=== PATIENT | male | born 1975 | race Caucasian/White ===

== ENCOUNTER 2018-02-10 06:42 | Emergency (ER) | payer OTHER, MEDICAID ==
[~2018-02-10] VITALS: Ht 180.3 cm; Wt 72.6 kg
[~2018-02-10 06:42] MED LIST: ACETAMINOPHEN-1 EAC1 PO; BACTRIM DS TAB1 EACH PO; IBUPROFEN 800800 M1 PO; KEFLEX500 MG PO; NORCO 5-325 TA1 EAC1 PO; TRIAMCINOLONE A80 G2 TOP
[2018-02-10] MEDS ORDERED: NORCO 5-325 TA1 EACH PO (08:26)
[2018-02-10] MEDS ORDERED: FLEXERIL PO (08:26)
[2018-02-10 08:36] VITALS: BP 169/78
== END 2018-02-10 08:37 | disposition home or self-care (01) ==
LOC: M.ERS 06:42
DX: S10.83XA Contusion of other specified part of neck, initial encounter (principal); Z77.22 Contact with and (suspected) exposure to environmental tobacco smoke (acute) (chronic); W22.8XXA Striking against or struck by other objects, initial encounter; Y93.89 Activity, other specified; Y92.89 Other specified places as the place of occurrence of the external cause; Y99.8 Other external cause status

== ENCOUNTER 2018-04-06 12:49 | Emergency (ER) | payer OTHER, MEDICAID ==
[~2018-04-06] VITALS: Ht 180.3 cm; Wt 72.6 kg
[~2018-04-06 12:49] MED LIST changes: +FLEXERIL PO; +NORCO 5-325 TA1 EACH PO
[2018-04-06 13:39] LABS: ABSOLUTE BASOPHILS 0.2 thou/uL (0.0-0.2); ABSOLUTE EOSINOPHILS 0.1 thou/uL (0.0-0.7); ABSOLUTE LYMPHOCYTES 1.8 thou/uL (0.8-5.3); ABSOLUTE MONOCYTES 1.3 thou/uL (0.0-1.2); ABSOLUTE NEUTROPHILS 12.2 thou/uL (1.6-8.1); EOSINOPHILS 0.5 %; HEMATOCRIT 41.8 % (42.0-52.0); HEMOGLOBIN 13.8 gm/dL (14.0-18.0); LYMPHOCYTES 11.4 %; MCH 29.1 pg (26.0-34.0); MCHC 33.1 g/dL (28.0-37.0); MCV 87.7 fL (80.0-100.0); MONOCYTES 8.2 %; MPV 7.3 fl. (7.2-11.1); NUCLEATED RBCS 0 /100WBC; PLATELET COUNT* 384 thou/uL (150-400); POLYS 78.9 %; RBC 4.76 mil/uL (4.50-6.00); RDW-CV 13.7 % (10.5-14.5); WBC 15.4 thou/uL (4.0-11.0)
[2018-04-06 13:40] LABS: INFLUENZA A ANTIGEN None Detected (None Detect); INFLUENZA B ANTIGEN None Detected (None Detect)
[2018-04-06] MEDS ORDERED: PREDNISONE 20 M20 M1 PO (13:42)
[2018-04-06] MEDS ORDERED: PROAIR HFA8.5 GM INH (13:42)
[2018-04-06] MEDS ORDERED: ZPAK PO (13:42)
[2018-04-06] MEDS ORDERED: TESSALON PERLE100 MG PO (13:44)
[2018-04-06 13:54] VITALS: BP 145/87
== END 2018-04-06 13:54 | disposition home or self-care (01) ==
LOC: M.ERS 12:49
PROVIDERS: Nurse Practitioner Family
DX: J18.9 Pneumonia, unspecified organism (principal); J20.9 Acute bronchitis, unspecified; F17.210 Nicotine dependence, cigarettes, uncomplicated